=== PATIENT | male | born 1970 | race Caucasian/White ===

== ENCOUNTER → 2022-04-26 | Outpatient (CLI) | payer OTHER ==
[2022-04-26 15:19] LABS: BASO # 0.02 K/mm3 (0.02-0.10); EOS % 3.8 % (0.0-4.0); HEMATOCRIT 45.2 % (42.0-52.0); HEMOGLOBIN 15.2 g/dL (13.5-18.0); LYMPH# 2.16 K/mm3 (1.50-4.00); MEAN CELL VOLUME 86 fl (78-100); MEAN CORPUSCULAR HEMOGLOBIN 29 pg (27-31); MEAN CORPUSCULAR HGB CONC 34 g/dL (33-37); NEU # 4.75 K/mm3 (1.40-6.50); PLATELET COUNT 202 K/mm3 (130-400); RED BLOOD COUNT 5.26 M/mm3 (4.20-5.60); WHITE BLOOD COUNT 7.8 K/mm3 (4.8-10.8)
[2022-04-26 15:36] LABS: ALBUMIN 4.5 g/dL (3.5-5.0); POTASSIUM 4.6 mmol/L (3.5-5.1)
[2022-04-26 15:37] LABS: CALCIUM 9.6 mg/dL (8.3-10.5)
[2022-04-26 15:38] LABS: TOTAL PROTEIN 7.6 g/dL (6.4-8.3)
[2022-04-26 15:40] LABS: TOTAL BILIRUBIN 0.8 mg/dL (0.2-1.2)
== END ==
LOC: LAB 15:02
DX: L03.213 Periorbital cellulitis (principal)
CPT/HCPCS: Q9967